=== PATIENT | female | born 1995 | race Asian ===

== ENCOUNTER 2016-06-19 03:03 | Emergency (ER) | payer OTHER ==
[~2016-06-19] VITALS: Ht 152.4 cm; Wt 40.5 kg
[2016-06-19] MEDS ORDERED: SODIUM CHLORIDE 0.9% 1000ML 1,000 ML IV STA (03:16)
[2016-06-19] MEDS ORDERED: LORAZEPAM 2 MG/ML 1 ML VIAL IV STA (03:16)
[2016-06-19 03:19] VITALS: Ht 152.4 cm; Wt 40.5 kg
[2016-06-19 03:24] VITALS: O2SAT 100
[2016-06-19 03:47] LABS: BASO % 0.1 %; BASO ABS # 0.01 K/uL (0-0.2); COMPLETE YES; EOS % 0.1 %; HEMATOCRIT 39.1 % (37-47); IG% 0.1 %; LYMPH % 14.9 %; LYMPH ABS # 1.15 K/uL (1.2-3.4); MEAN CELL VOLUME 88.3 fL (80-100); MEAN CORPUSCULAR HEMOGLOBIN 29.6 pg (25-34); MEAN CORPUSCULAR HGB CONC 33.5 g/dl (32-36); MEAN PLATELET VOLUME 10.3 fL (7.4-10.4); MONO % 5.7 %; NEUT % 79.1 %; PLATELET COUNT 242 K/uL (130-400); RED BLOOD COUNT 4.43 M/uL (4.2-5.4)
[2016-06-19 04:18] LABS: BUN/CREATININE RATIO 15.3 (10-20); CREATININE 0.73 mg/dl (0.60-1.20); POTASSIUM 3.9 mmol/L (3.5-5.1)
[2016-06-19 04:21] LABS: ACETAMINOPHEN < 2 ug/ml (10-30)
[2016-06-19 04:28] LABS: ALB/GLOB RATIO 1.1 (0.9-2); THYROID STIMULATING HORMONE 0.646 uIu/ml (0.300-4.500)
[2016-06-19 05:03] LABS: URINE APPEARANCE CLOUDY (CLEAR); URINE BILIRUBIN NEG (NEG); URINE COLOR YELLOW; URINE EPITHELIAL CELL AUTO >30 /lpf (0-5); URINE NITRITE NEG (NEG); URINE PH >= 9.0 (4.5-7.5); URINE SPECIFIC GRAVITY 1.018 (1.000-1.030); UROBILINOGEN NEG (NEG); ZZUR CULT IF INDIC CLEAN CATCH YES
[2016-06-19 05:04] LABS: MANUAL MICROSCOPIC REQUIRED? NO; REVIEW REQ? YES
[2016-06-19 05:37] LABS: BENZODIAZEPINE, URINE NEG (NEG); COCAINE,URINE NEG (NEG); PHENCYCLIDINE, URINE NEG (NEG)
--- NOTE | 2016-06-19 07:03 | EMERGENCY ROOM VISIT NOTE ---
History Report prepared by Viola: Joanna Hilliard Under the Supervision of: Dr. David Najera M.D. First contact with patient: 03:02 Chief Complaint: ANXIETY Stated Complaint: ANXIETY/EMOTIONAL History of Present Illness The patient is a 21 year old female who presents to the Emergency Room via EMS to be evaluated for an episode of anxiety that occurred this evening. Per EMS, the patient was found sitting curled up in a car. Per patient, she was having an argument with her boyfriend. She states that she is having a headache, chest pain, abdominal pain. The patient denies drinking tonight. Source of History: patient, EMS Onset: this evening Position: other (global) Quality: other (anxiety) Timing: other (episode) Associated Symptoms: + abdominal pain, + chest pain, + headache Review of Systems See HPI for pertinent positives & negatives. A total of 10 systems reviewed and were otherwise negative. Past Medical & Surgical Medical Problems: (1) No Known Active Medical Problems Family History No pertinent family history Social History Marital Status: in relationship Housing Status: lives with roommate Occupation Status: student Current/Historical Medications No Active Prescriptions or Reported Meds Allergies Coded Allergies: No Known Allergies (Unverified , 06/19/16) Physical Exam Vital Signs Date Time Temp Pulse Resp B/P Pulse Ox O2 Delivery O2 Flow Rate FiO2 06/19/16 06:42 75 06/19/16 06:42 76 18 135/79 100 Room Air 06/19/16 05:36 90 18 130/67 98 Room Air 06/19/16 03:53 79 18 123/76 96 Room Air 06/19/16 03:24 100 Room Air 06/19/16 03:19 36.7 79 18 117/67 100 Room Air 06/19/16 03:17 78 Physical Exam GENERAL: Patient is anxious appearing, noncooperative with exam, awake and looking around the room. HEENT: No acute trauma, normocephalic atraumatic, mucous membranes moist, no nasal congestion, no scleral icterus. NECK: No stridor, no adenopathy, no meningismus, trachea is midline. LUNGS: No dyspnea. Clear to auscultation and equal bilaterally. No wheeze, no rhonchi. HEART: Regular rate and rhythm. No murmurs, rubs, gallops appreciated. ABDOMEN: Soft, nontender, bowel sounds positive, no masses appreciated, no peritonitis. BACK: No midline tenderness, no CVA tenderness EXTREMITIES: Normal motion all extremities, no cyanosis, no edema. NEUROLOGIC: Alert and oriented, no acute motor or sensory deficits, no focal weakness, cranial nerves grossly intact. SKIN: No rash, no jaundice, no diaphoresis. Medical Decision & Procedures Laboratory Results 06/19/16 03:36 Red Blood Count 4.43, Mean Corpuscular Volume 88.3, Mean Corpuscular Hemoglobin 29.6, Mean Corpuscular Hemoglobin Concent 33.5, Mean Platelet Volume 10.3, Neutrophils (%) (Auto) 79.1, Lymphocytes (%) (Auto) 14.9, Monocytes (%) (Auto) 5.7, Eosinophils (%) (Auto) 0.1, Basophils (%) (Auto) 0.1, Neutrophils # (Auto) 6.08, Lymphocytes # (Auto) 1.15, Monocytes # (Auto) 0.44, Eosinophils # (Auto) 0.01, Basophils # (Auto) 0.01 06/19/16 03:36 Test 06/19/16 03:36 06/19/16 04:30 White Blood Count 7.70 K/uL (4.8-10.8) Red Blood Count 4.43 M/uL (4.2-5.4) Hemoglobin 13.1 g/dL (12.0-16.0) Hematocrit 39.1 % (37-47) Mean Corpuscular Volume 88.3 fL (80-100) Mean Corpuscular Hemoglobin 29.6 pg (25-34) Mean Corpuscular Hemoglobin Concent 33.5 g/dl (32-36) Platelet Count 242 K/uL (130-400) Mean Platelet Volume 10.3 fL (7.4-10.4) Neutrophils (%) (Auto) 79.1 % Lymphocytes (%) (Auto) 14.9 % Monocytes (%) (Auto) 5.7 % Eosinophils (%) (Auto) 0.1 % Basophils (%) (Auto) 0.1 % Neutrophils # (Auto) 6.08 K/uL (1.4-6.5) Lymphocytes # (Auto) 1.15 K/uL (1.2-3.4) Monocytes # (Auto) 0.44 K/uL (0.11-0.59) Eosinophils # (Auto) 0.01 K/uL (0-0.5) Basophils # (Auto) 0.01 K/uL (0-0.2) RDW Standard Deviation 44.5 fL (36.4-46.3) RDW Coefficient of Variation 13.6 % (11.5-14.5) Immature Granulocyte % (Auto) 0.1 % Immature Granulocyte # (Auto) 0.01 K/uL (0.00-0.02) Anion Gap 9.0 mmol/L (3-11) Est Creatinine Clear Calc Drug Dose 78.6 ml/min Estimated GFR () 137.4 Estimated GFR (Non- 118.6 BUN/Creatinine Ratio 15.3 (10-20) Calcium Level 9.0 mg/dl (8.5-10.1) Total Bilirubin 0.5 mg/dl (0.2-1) Aspartate Amino Transf (AST/SGOT) 12 U/L (15-37) Alanine Aminotransferase (ALT/SGPT) 21 U/L (12-78) Alkaline Phosphatase 67 U/L (45-117) Total Protein 7.6 gm/dl (6.4-8.2) Albumin 4.0 gm/dl (3.4-5.0) Globulin 3.6 gm/dl (2.5-4.0) Albumin/Globulin Ratio 1.1 (0.9-2) Thyroid Stimulating Hormone (TSH) 0.646 uIu/ml (0.300-4.500) Salicylates Level < 1.7 mg/dl (2.8-20) Acetaminophen Level < 2 ug/ml (10-30) Ethyl Alcohol mg/dL < 3.0 mg/dl (0-3) Urine Color YELLOW Urine Appearance CLOUDY (CLEAR) Urine pH >= 9.0 (4.5-7.5) Urine Specific [place] 1.018 (1.000-1.030) Urine Protein NEG (NEG) Urine Glucose (UA) NEG (NEG) Urine Ketones 1+ (NEG) Urine Occult Blood NEG (NEG) Urine Nitrite NEG (NEG) Urine Bilirubin NEG (NEG) Urine Urobilinogen NEG (NEG) Urine Leukocyte Esterase LARGE (NEG) Urine WBC (Auto) 10-30 /hpf (0-5) Urine RBC (Auto) 0-4 /hpf (0-4) Urine Hyaline Casts (Auto) 1-5 /lpf (0-5) Urine Epithelial Cells (Auto) >30 /lpf (0-5) Urine Bacteria (Auto) 1+ (NEG) Urine Renal Epithelial Cells /lpf (0-5) Urine Test NEG (NEG) Urine Opiates Screen NEG (NEG) Urine Methadone, Qualitative NEG (NEG) Urine Barbiturates NEG (NEG) Urine Phencyclidine (PCP) Level NEG (NEG) Ur Amphetamine/Methamphetamine NEG (NEG) MDMA (Ecstasy) Screen NEG (NEG) Urine Benzodiazepines Screen NEG (NEG) Urine Cocaine Metabolite NEG (NEG) Urine Marijuana (THC) NEG (NEG) Laboratory results as reviewed by me. Medications Administered Medications (Trade) Dose Ordered Sig/Foreign Route Start Time Stop Time Status Last Admin Dose Admin Sodium Chloride (Nss 1000ml) 1,000 ml @ 999 mls/hr Q1H1M STAT IV 06/19/16 03:16 06/19/16 04:16 DC 06/19/16 03:28 999 MLS/HR Lorazepam (Ativan Inj) 0.5 mg NOW STAT IV 06/19/16 03:16 06/19/16 03:17 DC 06/19/16 03:28 0.5 MG ED Course 0302: The patient was evaluated in room B10. A complete history and physical exam was performed. 0316: Ativan 0.5 mg IV, Sodium Chloride 1000 ml @ 999 mls/hr IV 0405: I reevaluated the patient; she is doing well. 0525: I reevaluated the patient; she is sleeping. 0628: I reevaluated the patient; she is in no distress and is sleeping. 0730: Awake, alert and wanting to go home. Medical Decision Differential: Mood Disorder, Overdose, Infectious, Electrolyte Abnormality, Cardiac, Hepatic, Endocrine, Toxicologic, Neurologic, amongst other pathologies entertained. 21 yr old female arrives acutely anxious s/p her boyfriend reportedly breaking up with her. Essentially unwilling to even participate in exam initially due to acute anxiety thus given Ativan. Eventually fell asleep. Awakens periodically without issue. No trauma. No other issues. She has no evidence of overdose nor drug ingestion. Due to somnolence she was monitored throughout evening. This morning awake, alert, oriented and wants to go home. She has no thoughts of harm to self or others. She is stable and comfortable. Aware she can always return if worsening symptoms or other concerns. Impression Primary Impression: Anxiety as acute reaction to gross stress Scribe Attestation The scribe's documentation has been prepared under my direction and personally reviewed by me in its entirety. I confirm that the note above accurately reflects all work, treatment, procedures, and medical decision making performed by me. Departure Information Dispostion Home / Self-Care Prescriptions No Active Prescriptions or Reported Meds Referrals Primary Provider Patient Instructions Anxiety Body Response, My [facility]
[2016-06-19 08:26] VITALS: BP 122/64; PULSE 84; TEMP 36.6; O2SAT 100
== END 2016-06-19 08:27 | disposition home or self-care (01) ==
LOC: C.EDB 03:05 → EDBD 03:05 → C.EDB 08:27
DX: F41.9 Anxiety disorder, unspecified (principal); F43.0 Acute stress reaction

== ENCOUNTER 2016-09-24 00:24 | Emergency (ER) | payer OTHER ==
[~2016-09-24] VITALS: Ht 165.1 cm; Wt 41.0 kg
[2016-09-24 00:36] VITALS: TEMP 36.8; Ht 165.1 cm; Wt 41.0 kg
[2016-09-24 01:17] VITALS: O2SAT 98
[2016-09-24 03:21] VITALS: BP 136/64; PULSE 74; O2SAT 98
--- NOTE | 2016-09-24 06:09 | DIAGNOSTIC IMAGING REPORT ---
CHEST ONE VIEW PORTABLE CLINICAL HISTORY: SOB dyspnea COMPARISON STUDY: No previous studies for comparison. FINDINGS: The bones soft tissues and hemidiaphragms are normal. The cardiomediastinal silhouette is normal. The lungs are clear. The pulmonary vasculature is normal. IMPRESSION: Negative chest. Electronically signed by: Adan Verduzco M.D. 09/24/2016 6:08 AM Dictated Date/Time: 09/24/2016 6:08 AM
--- NOTE | 2016-09-25 05:44 | EMERGENCY ROOM VISIT NOTE ---
History First contact with patient: 02:00 Chief Complaint: RESPIRATORY PROBLEMS Stated Complaint: CAN'T BREATHE, Nursing Triage Summary: hyperventilating, coached to slow bresthing, able to answer questions History of Present Illness The patient is a 21 year old female who presents to the Emergency Room with complaints of difficulty breathing after having a fight with her boyfriend. The patient states that she was crying when she began having difficulty with breathing. On presentation to triage the patient is hyperventilating, and reportedly was quite anxious. The patient was coached to slow her breathing, and now feels much better. The patient states that she has had similar symptoms when she becomes emotional in the past. She does not have recent fever or chills. No abdominal discomfort. She does not take control and is without recent travel history. She is requesting discharge home. She rates her discomfort a 0/10. Review of Systems More than 10 systems were reviewed and otherwise negative with the exception of history of present illness. Past Medical/Surgical History Medical Problems: (1) No Known Active Medical Problems Family History No pertinent family history Social History Smoking Status: Never Smoker Marital Status: in relationship Housing Status: lives with roommate Occupation Status: student Current/Historical Medications No Active Prescriptions or Reported Meds Allergies Coded Allergies: No Known Allergies (Unverified , 09/24/16) Physical Exam Vital Signs Date Time Temp Pulse Resp B/P Pulse Ox O2 Delivery O2 Flow Rate FiO2 09/24/16 03:21 74 16 136/64 98 Room Air 09/24/16 02:00 132/59 09/24/16 01:54 82 17 99 09/24/16 01:30 122/64 09/24/16 01:24 73 27 98 09/24/16 01:17 98 Room Air 09/24/16 01:00 120/56 09/24/16 00:56 96 09/24/16 00:54 85 32 100 09/24/16 00:52 101 40 107/74 100 09/24/16 00:46 107/74 09/24/16 00:39 95 Room Air 09/24/16 00:36 36.8 74 22 109/71 95 Room Air Pain Rating (0-10): 0 Physical Exam VITALS: Vitals are noted on the nurse's note and reviewed by myself. Vital signs stable. GENERAL: Well-developed, well-nourished, female, who is in no acute distress and resting comfortably. Patient is cooperative with the examination. HEAD: Normocephalic atraumatic. EARS: External ear normal. External auditory canals clear, tympanic membranes pearly tatum without erythema or effusion bilaterally. EYES: Pupils equal round and reactive to light and accommodation. Conjunctivae without injection, sclerae without icterus. Extraocular movements intact. NOSE: Patent, turbinates without inflammation or discharge. MOUTH: Mucous membranes moist. Tonsils are not enlarged. Pharynx without erythema, blood, or exudate. Uvula midline. Airway patent. NECK: Supple without nuchal rigidity. No lymphadenopathy. No thyromegaly. Cervical spine is nontender. HEART: Regular rate and rhythm without murmurs gallops or rubs. LUNGS: Clear to auscultation bilaterally without wheezes, rales or rhonchi. No retractions or accessory muscle use. Medical Decision & Procedures ER Provider Diagnostic Interpretation: CHEST ONE VIEW PORTABLE CLINICAL HISTORY: SOB dyspnea COMPARISON STUDY: No previous studies for comparison. FINDINGS: The bones soft tissues and hemidiaphragms are normal. The cardiomediastinal silhouette is normal. The lungs are clear. The pulmonary vasculature is normal. IMPRESSION: Negative chest. ECG Change: Normal sinus rhythm @72 bpm Normal ECG No previous ECGs available Confirmed by LA WILLAMS MD ([id number]) on 09/24/2016 1:29:58 PM ED Course Physical exam and history were performed. Nursing notes and EMR were reviewed. Patient appears to have shortness of breath that occurred after crying. She was reported really hyperventilating in triage, and on my presentation to the room the patient appears well and in no acute distress. I discussed options of care with the patient, who indicated that she feels better and would like to be discharged home. I recommended as a precaution we gather a chest x-ray performed an EKG. The patient did agree to this. The EKG is as above and does not show significant acute findings. Chest x-ray is also without acute findings. Overall the patient appears stable for discharge home. I suspect her symptoms tonight were related to stress or anxiety. The patient was asked to follow with [facility] or her primary care physician for further care and management. She was otherwise invited back to the ER with any new, worsening, or concerning symptoms. The chart was completed utilizing [employer] Speech Voice Recognition Software. Grammatical errors, random word insertions, pronoun errors, and incomplete sentences are an occasional consequence of this system due to software limitations, ambient noise, and hardware issues. Any formal questions or concerns about the content, text, or information contained within the body of this dictation should be directly addressed to the provider for clarification. . Medical Decision Differential diagnosis includes, but is not limited to: Myocardial infarction, dysrhythmia, pericarditis, pneumothorax, aortic aneurysm/dissection, DVT/PE, anxiety, GERD, PUD, electrolyte imbalance, thyroid disorder, pneumonia, bronchitis, pancreatitis, and others Impression Primary Impression: Anxiety Departure Information Dispostion Home / Self-Care Condition GOOD Prescriptions No Active Prescriptions or Reported Meds Forms WORK / SCHOOL INSTRUCTIONS, HOME CARE DOCUMENTATION FORM, IMPORTANT VISIT INFORMATION Patient Instructions My [facility] Additional Instructions You were seen and evaluated today on an emergency basis only. This is not a substitute for, or an effort to provide, complete comprehensive medical care. It is not possible to recognize and treat all injuries or illnesses in a single emergency department visit. For this reason it is recommended that you followup with [facility] or your primary care physician this week for ongoing care and evaluation. You are welcome to return to the emergency department anytime with new, worsening, or concerning symptoms.
== END 2016-09-24 03:26 | disposition home or self-care (01) ==
LOC: C.EDB 00:26
DX: F41.9 Anxiety disorder, unspecified (principal)